=== PATIENT | female | born 1960 | race Caucasian/White ===

== ENCOUNTER 2018-02-10 19:18 | Emergency (ER) | payer BC ==
[2018-02-10] MEDS ORDERED: Adacel (T-DAP) 0.5 ML VIAL ONE (20:21)
[2018-02-10] MEDS ORDERED: Sulfameth/Trimethoprim DS 800-160mg TAB ONE ×2 (20:31)
== END 2018-02-10 20:40 | disposition home or self-care (01) ==
LOC: MADERS 19:18
DX: S61.211A Laceration without foreign body of left index finger without damage to nail, initial encounter (principal); W26.0XXA Contact with knife, initial encounter
CPT/HCPCS: 12001; 90471; 90715